=== PATIENT | male | born 1955 | race Caucasian/White ===

== ENCOUNTER 2017-01-22 16:09 | Inpatient (IN) | payer BC ==
[~2017-01-22] VITALS: Ht 188 cm; Wt 128.5 kg
[~2017-01-22 16:09] MED LIST: AMBIEN10 MG PO; AMLODIPINE BESYL5 MG PO; ASPIRIN CHEW81 MG PO; B-100 COMPLEX1 EACH PO; B-COMPLEX 100 I30 ML PO; CARVEDILOL12.5 MG PO; CYCLOBENZAPRINE10 MG PO; DIOVAN160 MG PO; HYDROCHLOROTH12.5 M1 PO; LANTUS100 UNITS/ SC; MAGNESIUM500 MG PO; NORCO 10MG-325MG1 EA PO; Z.0.AMLODIPINE BESY1 PO; Z.0.COREG25 MG PO; Z.0.DIOVAN HCT 3201 PO; Z.0.FUROSEMIDE20 MG PO; Z.0.GLIMEPIRIDE4 MG PO; Z.0.KLOR-CON 1010 ME PO
[2017-01-22] MEDS ORDERED: SODIUM CHLORIDE 0.9% 1000ML 1,000 ML IV STA (16:46)
[2017-01-22 16:57] LABS: BASOPHILS # (AUTO) 0.1 (0.0-0.1); BASOPHILS % 0.5 % (0.0-1.0); EOSINOPHILS # (AUTO) 0.4 (0.0-0.4); EOSINOPHILS % 3.8 % (0.0-6.0); HEMOGLOBIN 8.5 g/dL (14.0-18.0); LYMPHOCYTES # (AUTO) 1.7 (1.0-3.2); LYMPHOCYTES % 16.8 % (18.0-39.1); MEAN CORPUSCULAR HEMOGLOBIN 28.5 pg (28-32); MEAN CORPUSCULAR HGB CONC 30.4 g/dL (31-35); MONOCYTES # (AUTO) 0.8 (0.2-0.8); MONOCYTES % 8.3 % (4.4-11.3); NEUTROPHILS # (AUTO) 6.9 (2.1-6.9); NEUTROPHILS % 70.3 % (38.7-80.0); PLATELET COUNT 220 x10e3/uL (140-360); RED BLOOD COUNT 2.98 x10e6/uL (4.3-5.7)
[2017-01-22 17:10] LABS: ALBUMIN 2.6 g/dL (3.5-5.0); ALBUMIN/GLOBULIN RATIO 0.5 (0.8-2.0); CALCIUM 9.4 mg/dL (8.4-10.2); CREATININE, SERUM 1.89 mg/dL (0.72-1.25)
--- NOTE | 2017-01-22 17:16 | Diagnostic Imaging Report ---
PROCEDURE: A single AP view of the chest. COMPARISON: Patients [facility], , CHEST SINGLE (PORTABLE), 01/03/2017, 1:36. INDICATIONS: SOB FINDINGS: Lines/tubes: None. Lungs: Hypoinflated lungs. Bilateral interstitial opacities extending from the jimbo, greater than right. Patchy opacities in bilateral lower lobes. Pleura: There is no pleural effusion or pneumothorax. Heart and mediastinum: Prominence of the cardiac silhouette, which may be partly due to low lung volumes. Central pulmonary venous congestion. Bones: No acute bony abnormality. IMPRESSION: 1. central pulmonary venous congestion and bilateral perihilar interstitial edema likely due to volume overload. 2. Patchy opacities in bilateral lower lobes, likely reflect atelectasis due to low lung volumes. Gigi Pearl M.D. Dictated by: Gigi Pearl M.D. on 01/22/2017 at 17:25 Electronically approved by: Gigi Pearl M.D. on 01/22/2017 at 17:25
[2017-01-22] MEDS ORDERED: ZOLOFT50 MG PO (18:06)
[2017-01-22] MEDS ORDERED: FAMOTIDINE20 MG PO (18:06)
[2017-01-22] MEDS ORDERED: VALIUM2 MG PO (18:06)
[2017-01-22] MEDS ORDERED: DULCOLAX SUPP10 MG RC (18:06)
[2017-01-22] MEDS ORDERED: ASPIRIN EC81 MG PO (18:06)
[2017-01-22] MEDS ORDERED: COLACE100 MG PO (18:06)
[2017-01-22] MEDS ORDERED: NEPHRO-VITE TABL1 EA PO (18:06)
[2017-01-22] MEDS: SODIUM CHLORIDE 0.9% 1000ML 1,000 ML IV SCH ×2 (18:30→20:06)
[2017-01-22 18:52] LABS: BILIRUBIN,URINE 1+ (NEGATIVE); CLARITY,URINE CLEAR (CLEAR); COLOR,URINE YELLOW (YELLOW); KETONES,URINE NEGATIVE (NEGATIVE); LEUKOCYTE ESTERASE ,URINE 2+ (NEGATIVE); NITRITE,URINE POSITIVE (NEGATIVE); PROTEIN,URINE DIPSTICK 2+ (NEGATIVE); URINE UROBILINOGEN 1 mg/dL (0.2 - 1)
[2017-01-22 19:09] LABS: EPITHELIAL CELLS,URINE FEW /LPF; RBC,URINE 0-5 /HPF (0-5)
[2017-01-22 19:10] LABS: AMORPHOUS SEDIMENT,URINE MODERATE (FEW); BACTERIA,URINE MODERATE /HPF
[2017-01-22] MEDS ORDERED: DIAZEPAM 2 MG TAB PO PRN (20:15)
[2017-01-22] MEDS ORDERED: BISACODYL 10 MG SUPP PR PRN (20:15)
[2017-01-22 20:40] VITALS: BP 142/67
[2017-01-22] MEDS: LEVOFLOXACIN 500MG/D5W 100ML 100 ML IV SCH ×2 (20:42→23:00)
--- NOTE | 2017-01-22 21:43 | History and Physical ---
HISTORY OF PRESENT ILLNESS: A 61-year-old male who comes in with acute mental status changes and also dehydration. The patient was transferred recently from [facility] to [facility]. The patient was supposedly given medication of Valium 3 times a day and apparently the found the patient to be having mental status changes and brought to the emergency room here and was found to have dehydration. MEDICATIONS: The patient's medications include amlodipine 5 mg, aspirin 81 mg, Dulcolax 10 mg suppository, Carvedilol 12.5 mg 1 tablet twice a day, Valium 2 mg q.12 h. p.r.n., Colace 100 mg, famotidine 20 mg, folic acid tablets, hydrochlorothiazide 12.5, Glargine 75 units, Sertraline 50 mg, losartan 160. PAST MEDICAL HISTORY: Hypertension, history of diabetes mellitus, history of anxiety, history of alcohol withdrawal, history of hypertension, history of dementia, and history of diabetes mellitus and depression. PAST SURGICAL HISTORY: History of bilateral cataracts, knee surgeries, left upper arm surgery, history of testicular cancer. The patient has history of bilateral carpal tunnel surgery. FAMILY HISTORY: History of hypertension and diabetes mellitus in the family and coronary artery disease in the family too. SOCIAL HISTORY: Recently stopped alcohol completely and was transferred to [place] for rehabilitation. REVIEW OF SYSTEMS: Unable to obtain. From 's account, there is no chest pain, no shortness of breath. Positive for changes in mental status. No nausea, vomiting, diarrhea, no constipation or rectal bleeding. No hematochezia and no hematemesis either. No blurry vision or diplopia. PHYSICAL EXAMINATION GENERAL: The patient is alert and oriented x1. Arousable and does respond to his name. HEENT: Normocephalic, atraumatic. Oxygen 2 liters. CVS: S1 and S2, distant. Regular rate and rhythm. LUNGS: Decreased air entry at lung bases. Positive for some crackles in the lungs. ABDOMEN: Nontender, nondistended. EXTREMITIES: No clubbing. Positive for onychomycosis., trophic changes and positive for bilateral lower extremity edema. Chest x-ray initially shows central pulmonary venous congestion, bilateral perihilar interstitial edema, patchy opacities in the lower lungs. LABORATORY DATA: White count is 9.83, RBCs 2.9, hemoglobin 8.5, hematocrit 28.0, platelet count 220,000. Chemistry shows BUN of 81, creatinine 1.89. Magnesium 2.5, total bilirubin 1.4, AST 42, ALT 36, alkaline phosphatase 271. Urine showed 2+ leukocyte esterase and positive for nitrates. PLAN: The patient has been started on IV fluids. With his urine, will go ahead and culture the urine and start him on some IV antibiotic, and will supplement with Levaquin right now 500 mg IV daily. Will reinstate home medications tomorrow. Continue checking his vitals and also his lab values to see his creatinine. Also, need to continue monitoring the patient's volume status and will do a chest x-ray in the morning. Further recommendations depending on clinical course. Job#: [id number] ANDREW
[2017-01-22] MEDS ORDERED: FUROSEMIDE INJ 10 MG/ML 4 ML VIAL IV ONE (22:45)
[2017-01-22] MEDS: ALBUTEROL/IPRATROPIUM 3 ML NEB NEB SCH (23:00)
[2017-01-22] MEDS: CARVEDILOL 10 MG CAPCR PO SCH (23:00)
[2017-01-22] MEDS: INSULIN DETEMIR 100 UNIT/ML PEN SQ SCH (23:00)
[2017-01-22 23:38] VITALS: BP 142/67
[2017-01-22 23:46] VITALS: BP 142/67
[2017-01-23] VITALS (7 sets, daily range): BP systolic 111–140; BP diastolic 64–91
[2017-01-23] MEDS: ALBUTEROL/IPRATROPIUM 3 ML NEB NEB SCH ×2 (03:00→07:20)
--- NOTE | 2017-01-23 06:30 | Diagnostic Imaging Report ---
CHEST SINGLE (PORTABLE), 01/23/2017 12:17 AM Technique: CHEST SINGLE (PORTABLE) Comparison: 01/03/2017 Clinical history: Dehydration Findings: See Impression Impression: 1. Prominent cardiomediastinal silhouette, poorly assessed due to portable technique and rotation. 2. Bibasilar opacities which could be due to atelectasis, aspiration or infection. Recommend upright PA and lateral when feasible. 3. No significant effusion. Signed by: Dr Cynthia Richmond MD on 01/23/2017 6:26 AM
[2017-01-23 06:43] LABS: BASOPHILS % 0.4 % (0.0-1.0); EOSINOPHILS # (AUTO) 0.3 (0.0-0.4); EOSINOPHILS % 3.8 % (0.0-6.0); HEMATOCRIT 29.4 % (38.2-49.6); HEMOGLOBIN 8.5 g/dL (14.0-18.0); LYMPHOCYTES # (AUTO) 1.5 (1.0-3.2); LYMPHOCYTES % 18.6 % (18.0-39.1); MEAN CORPUSCULAR HEMOGLOBIN 27.8 pg (28-32); MEAN CORPUSCULAR HGB CONC 28.9 g/dL (31-35); MEAN CORPUSCULAR VOLUME 96.1 fL (81-99); MONOCYTES # (AUTO) 0.6 (0.2-0.8); MONOCYTES % 7.9 % (4.4-11.3); NEUTROPHILS # (AUTO) 5.6 (2.1-6.9); NEUTROPHILS % 68.8 % (38.7-80.0); PLATELET COUNT 223 x10e3/uL (140-360); RED BLOOD COUNT 3.06 x10e6/uL (4.3-5.7); RED CELL DISTRIBUTION WIDTH 15.9 % (11.7-14.4)
[2017-01-23 07:07] LABS: CALCIUM 9.3 mg/dL (8.4-10.2); CREATININE, SERUM 1.71 mg/dL (0.72-1.25)
[2017-01-23 08:20] LABS: BAND NEUTROPHILS % (MANUAL) 1 %; EOSINOPHILS % (MANUAL) 2 % (0-7); LYMPHOCYTES % (MANUAL) 10 % (19-48); MONOCYTES % (MANUAL) 1 % (3.4-9.0); NEUTROPHILS % (MANUAL) 86 % (40-74); PLATELET ESTIMATE ADEQUATE; PLATELET MORPHOLOGY COMMENT NORMAL; RBC MORPHOLOGY COMMENT NORMAL
[2017-01-23] MEDS ORDERED: DIGOXIN INJ 0.25 MG/ML 2 ML AMP IV ONE (08:45)
[2017-01-23] MEDS: HYDROCHLOROTHIAZIDE 25 MG TAB PO SCH (09:00)
[2017-01-23] MEDS: CARVEDILOL 10 MG CAPCR PO SCH (09:00)
[2017-01-23] MEDS: AMLODIPINE BESYLATE 5 MG TAB PO SCH (09:00)
[2017-01-23] MEDS: SERTRALINE HCL 50 MG TAB PO SCH (09:00)
[2017-01-23] MEDS: FAMOTIDINE 20 MG TAB PO SCH ×2 (09:00→17:00)
[2017-01-23] MEDS: ASPIRIN 81 MG ENTERIC COATED PO SCH (09:00)
[2017-01-23] MEDS: DOCUSATE SODIUM 100 MG CAP PO SCH ×2 (09:00→17:00)
[2017-01-23] MEDS: VALSARTAN 160 MG TAB PO SCH (09:00)
[2017-01-23] MEDS ORDERED: DIGOXIN IV ONE (09:30)
[2017-01-23 09:38] LABS: FREE THYROXINE INDEX 1.8036 (1.4-3.8); T3 UPTAKE 33.84 % (22.50-37.00); THYROID STIMULATING HORMONE 0.689 uIU/mL (0.350-4.940); TROPONIN I 0.01 ng/mL (0-0.300)
[2017-01-23] MEDS: LEVALBUTEROL HCL SOLN NEBU 0.63 MG/3 ML NEB INH PRN (11:05)
[2017-01-23] MEDS: SODIUM CHLORIDE 0.9% 1000ML 1,000 ML IV SCH (13:56)
[2017-01-23] MEDS: LABETALOL HCL IV 5 MG/ML 20ML MDV IV SCH ×2 (14:30→22:00)
[2017-01-24] VITALS (27 sets, daily range): BP systolic 68–137; BP diastolic 44–81
[2017-01-24] MEDS: LABETALOL HCL IV 5 MG/ML 20ML MDV IV SCH ×4 (06:00→23:24)
--- NOTE | 2017-01-24 06:11 | Diagnostic Imaging Report ---
CHEST SINGLE (PORTABLE), 01/24/2017 6:00 AM Technique: CHEST SINGLE (PORTABLE) Comparison: 01/23/2017 Clinical history: Fluid overload Findings: See Impression Impression: Markedly limited by portable technique and soft tissue attenuation. Lung apices excluded from view. 1. Enlarged cardiomediastinal silhouette. 2. Low lung volumes with vascular crowding/atelectasis and/or edema. 3. Possible layering left effusion versus artifact of technique. Signed by: Dr Cynthia Richmond MD on 01/24/2017 6:07 AM
[2017-01-24] MEDS ORDERED: ACETAMINOPHEN 1000 MG/100 ML IV STA (07:45)
[2017-01-24] MEDS ORDERED: DILTIAZEM HCL VIAL 5 ML ONE (07:52)
[2017-01-24] MEDS: SODIUM CHLORIDE 0.9% 1000ML 1,000 ML IV SCH (08:20)
[2017-01-24 08:23] LABS: ABG HCO3 23 mmol/L (23-28); ABG PCO2 34 mmHg (41-51); ABG PH 7.43 (7.31-7.41); ABG PO2 73 mmHg (80-105)
[2017-01-24] MEDS: CARVEDILOL 10 MG CAPCR PO SCH (09:00)
[2017-01-24] MEDS ORDERED: VANCOMYCIN 1GM/NS 250 ML 250 ML IV SCH (09:00)
[2017-01-24] MEDS: VALSARTAN 160 MG TAB PO SCH (09:00)
[2017-01-24] MEDS: FAMOTIDINE 20 MG TAB PO SCH (09:00)
[2017-01-24] MEDS: HYDROCHLOROTHIAZIDE 25 MG TAB PO SCH (09:00)
[2017-01-24] MEDS: DOCUSATE SODIUM 100 MG CAP PO SCH ×2 (09:00→16:04)
[2017-01-24] MEDS ORDERED: DIGOXIN INJ 0.25 MG/ML 2 ML AMP IV ONE ×2 (09:00→12:30)
[2017-01-24] MEDS: SERTRALINE HCL 50 MG TAB PO SCH (09:00)
[2017-01-24] MEDS: ASPIRIN 81 MG ENTERIC COATED PO SCH (09:00)
[2017-01-24] MEDS: AMLODIPINE BESYLATE 5 MG TAB PO SCH (09:00)
--- NOTE | 2017-01-24 09:16 | Diagnostic Imaging Report ---
EXAMINATION: Chest, CHEST SINGLE (PORTABLE) INDICATION: Chest pain COMPARISON: Portable chest 0524 hours on 01/24/2017. Portable chest 01/23/2017. FINDINGS: LINES: None. Heart: Normal cardiac silhouette. Vascular: The pulmonary vasculature is within normal limits. Atherosclerotic calcifications of the aortic arch. Mediastinum: No mediastinal, hilar, or axillary mass or lymphadenopathy. Lungs: No parenchymal mass. Bilateral multifocal airspace opacities. Pleura: Small left pleural effusion. No pneumothorax. Bones: No acute osseous abnormality. Degenerative changes of the thoracic spine. Soft tissues: Normal. Impression: Bilateral multifocal airspace opacities may represent edema or pneumonia. Small left pleural effusion. Signed by: Dr. Gopal Casiano M.D. on 01/24/2017 9:13 AM
[2017-01-24 09:26] LABS: HEMOGLOBIN 9.2 g/dL (14.0-18.0); MEAN CORPUSCULAR HEMOGLOBIN 28.5 pg (28-32); MEAN CORPUSCULAR HGB CONC 29.7 g/dL (31-35); PLATELET COUNT 184 x10e3/uL (140-360); RED BLOOD COUNT 3.23 x10e6/uL (4.3-5.7)
[2017-01-24 09:53] LABS: ANION GAP 16.6 mmol/L (8-16); CALCIUM 9.1 mg/dL (8.4-10.2); CREATININE, SERUM 2.03 mg/dL (0.72-1.25); POTASSIUM 4.6 mmol/L (3.5-5.1)
[2017-01-24] MEDS: INSULIN LISPRO 100 UNIT/1 ML 3ML VIAL SQ SCH ×3 (11:30→17:46)
[2017-01-24] MEDS ORDERED: DEXTROSE 50% SYRINGE 50 ML IV PRN ×2 (11:30→22:15)
[2017-01-24] MEDS ORDERED: DILTIAZEM HCL 100 ML IV ONE (11:36)
[2017-01-24] MEDS ORDERED: DEXTROSE 5% 1000ML 1,000 ML IV ONE (12:00)
[2017-01-24] MEDS ORDERED: DILTIAZEM HCL 100 ML IV PRN (12:00)
[2017-01-24 12:09] LABS: FREE THYROXINE INDEX 1.7807 (1.4-3.8); T3 UPTAKE 34.78 % (22.50-37.00); THYROID STIMULATING HORMONE 0.397 uIU/mL (0.350-4.940)
[2017-01-24] MEDS ORDERED: AMIODARONE HCL 150 MG in DEXTROSE 5% 100ML 100 ML IV ONE (14:00)
[2017-01-24] MEDS ORDERED: CLINDAMYCIN PHOS 900MG/ D5W 50 50 ML IV SCH (14:00)
[2017-01-24] MEDS ORDERED: AMIODARONE HCL 900 MG in DEXTROSE 5 % 500ML BOTTLE 482 ML IV SCH (14:00)
[2017-01-24] MEDS ORDERED: MEROPENEM 500MG 500 MG in SODIUM CHLORIDE 0.9% 50ML 50 ML IV SCH (14:00)
--- NOTE | 2017-01-24 14:34 | Consultation ---
DATE OF CONSULTATION: January 24, 2017 PULMONARY CONSULTATION This is a patient of Dr. Avila, Dr. Quincy Bocanegra and Dr. Orr. This is an unfortunate, 61-year-old gentleman with a history of falling at home for which he was admitted to the hospital and then to rehabilitation in [facility] where, according to , he deteriorated further. He was progressively weak there with difficulty walking. History of diabetes and hypertension. History of alcoholism in the past. ALLERGIES: PENICILLIN. He has a history of testicular cancer treated with surgery, radiation and chemotherapy. He has had knee surgery, shoulder surgery and cataract surgery. He worked for [employer]. Family history is positive for cancer of the lung. PHYSICAL EXAMINATION GENERAL: He is a well-developed white male, confused. He awakens. VITALS: Temperature 102.1, pulse 144 and irregular, respirations 30, blood pressure 127/77. LUNGS: Bilateral rhonchi. HEART: Irregularly irregular rhythm. ABDOMEN: Nontender. EXTREMITIES: Not edematous. IMPRESSION 1. Congestive heart failure related to tachycardia arrhythmia. 2. Urinary tract infection with extended spectrum beta lactamase of the urine. 3. Presumed aspiration pneumonia. 4. Dehydration. 5. Renal failure. PLAN: IV fluids. Therapy of the atrial fibrillation with rapid response. Cardiology has been consulted. ICU care. BiPAP. The patient does have a history of sleep apnea but has refused BiPAP in the past. Broad-spectrum antibiotics to treat aspiration and staph cover. Liberalize fluids. Intubation if the patient declines. NG tube placement. The patient is unable to swallow at this time. Will request NG tube placement. Job#: [id number]
[2017-01-24 14:53] LABS: CREATINE KINASE MB 0.3 ng/mL (0.00-5.00); TROPONIN I 0.079 ng/mL (0-0.300)
--- NOTE | 2017-01-24 15:08 | Consultation ---
DATE OF CONSULTATION: January 24, 2017 CARDIOLOGY CONSULTATION REASON FOR CONSULTATION: Atrial fibrillation. HISTORY OF PRESENT ILLNESS: Mr. Naidu is a 61-year-old gentleman with a past medical history of hypertension, type-2 diabetes, hypercholesterolemia, alcohol dependence with very significant alcohol drinking history, who is drinking 32 shots of liquor a day for over 10 years according to family. The patient was most recently in a rehab facility trying to learn how to walk. However, he did not make much progress. At the rehab facility, he was receiving [id number] Valium q.8 h. Finally, he was taken out of rehab 3 days ago by his family and was brought here for further care and management. In the hospital here, he was found to have acute onset of mental status change with confusion, found to have dehydration, and was noted to be actively delirious. He also apparently aspirated here and is currently with hypoxic respiratory failure in the ICU and just clinically not doing well. He was brought to the ICU after having a rhythm change on his EKG. On EKG, he was noted to have atrial flutter with rapid ventricular response. The patient's family maintains that he has never had this electrical rhythm. Despite using diltiazem therapy, rate control was not adequately achieved. We are unable to currently obtain any subjective history as he is not conversational, staring blankly and is clearly not knowing where he is at. PAST MEDICAL HISTORY 1. Hypertension, essential. 2. Heavy alcohol dependence. 3. Remote history of testicular cancer. 4. Underlying alcohol-related brain injury and medical issues. 5. Chronic kidney disease, stage 3. 6. History of knee replacement surgery. FAMILY HISTORY: Unable to be obtained secondary to mental status. SOCIAL HISTORY: Heavy alcohol dependence, 32 drinks of hard liquor per day for over 10 years with history of DTs. No known history of IV drug use or smoking. He is currently . ALLERGIES: PENICILLIN. HOME MEDICATIONS: Include: 1. Norvasc 5 mg daily. 2. Aspirin 81 mg daily. 3. Coreg 12.5 mg b.i.d. 4. Pepcid 20 mg daily. 5. Hydrochlorothiazide 12.5 mg daily. 6. Lantus 75 units subcutaneous nightly. 7. Valsartan 320 mg daily. 8. Zoloft 50 mg daily. 9. Multivitamin tablet daily. REVIEW OF SYSTEMS: Unable to obtain secondary to medical condition. PHYSICAL EXAMINATION VITALS: Height 74 inches, weight 285 pounds, BMI 36.6. T-max 102. Current heart rate is 136. Blood pressure 112/64. The O2 sat is 93% on BiPAP therapy. GENERAL: This is a delirious gentleman who is currently staring, confused. He appears to be in moderate distress. HEENT: Pupils are equal, round and reactive to light. The extraocular movements are intact. Oropharynx is clear with BiPAP mask. NECK: No elevation of jugular venous pulsation. No carotid bruit. CARDIOVASCULAR: Tachycardic, irregular rate and rhythm. Normal S1 and S2. A 3/6 systolic murmur at the left lower sternal border. LUNGS: Coarse breath sounds and crackles, adventitious sounds throughout the lung campa. ABDOMEN: Soft. Nontender and nondistended. Normoactive bowel sounds. BACK: No costovertebral angle tenderness. EXTREMITIES: Warm with 2+ bounding radial pulses, 1+ pedal pulses, and trace edema. NEUROLOGIC: Confused. Unable to really adequately assess. LABS: White count 11.4, hemoglobin 9.2, hematocrit 31.0, platelets 184. Sodium 158, potassium 4.6, chloride 124, bicarb 22, BUN 71, creatinine 2.03, glucose 269. BNP is 1807. TSH 0.397. ABG shows pH 7.43, pCO2 34, pO2 73. UA shows 6-10 white cells. Chest x-ray reveals bilateral multifocal air space opacities and small left pleural effusion. EKG reveals atrial fibrillation with rapid ventricular response, LVH-type changes, and nonspecific ST-T-wave changes. DIAGNOSES 1. Atrial fibrillation with rapid ventricular response, likely secondary to underlying delirium and aspiration pneumonia. Differential includes alcohol withdrawal type state. 2. Hypoxic respiratory failure. Currently he is temporized on BiPAP therapy. 3. History of hypertension. 4. Heavy alcohol dependence history. 5. Underlying acute kidney injury. 6. Delirium. PLAN/RECOMMENDATIONS 1. From a cardiovascular standpoint, reviewed echocardiogram done 2 days ago showing EF 60% to 65% with hypertensive heart changes and no significant valvular abnormality. Suspect underlying rhythm issues or secondary to his underlying medical stressors. 2. Agree with broad-spectrum antibiotics to cover for underlying aspiration-type pneumonia coverage. 3. Pulmonary has been consulted for breathing management. Defer need for intubation per them but currently is being temporized on BiPAP therapy. 4. Lower extremity venous duplex was done showing no DVT, which excludes DVT and likely PE as an underlying cause of this presentation. 5. Monitor amiodarone response. 6. Will continue to follow this critically ill patient with you. Thank you for this referral. Job#: [id number]
--- NOTE | 2017-01-24 15:11 | Diagnostic Imaging Report ---
ADDENDUM #1 Hepatofugal flow is noted in the main portal vein. Signed by: Dr. Gopal Casiano M.D. on 01/24/2017 3:35 PM ORIGINAL REPORT EXAM: Complete Abdominal Ultrasound INDICATION: Fever. COMPARISON: None. TECHNIQUE: Transverse and longitudinal images of the upper abdomen were obtained. FINDINGS: Liver: Size: 20.0 cm in the right midclavicular line Appearance: Increased echogenicity, nodular contour Mass: No focal masses Main Portal Vein: 0.7 cm, normal size with hepatopetal flow. Spleen: Size: 17.8 cm in length, normal Echogenicity: Normal Mass: No focal masses Gallbladder: Stones/Sludge: None. Wall: 4.0 mm. Appearance: No pericholecystic fluid. No gallbladder hydrops. Sonographic Inman's Sign: Negative Bile Ducts: Intrahepatic Ducts: No dilatation Common bile duct measures 4.0 mm. no dilatation Pancreas: The pancreas was insufficiently visualized to comment secondary to overlying bowel gas. Right Kidney: Size: 11.8 cm Echogenicity: Normal Parenchymal thickness: Normal Collecting System: No hydronephrosis Stone: None Cyst/Mass: None Left Kidney: Size: 13.0 cm Echogenicity: Normal Parenchymal thickness: Normal Collecting System: No hydronephrosis Stone: None Cyst/Mass: None Vessels: Aorta: Visualized portions are normal Inferior Vena Cava: Visualized portions are normal Free Fluid: No ascites or pleural effusion IMPRESSION: Hepatomegaly. Hepatic steatosis. Nodular contour of the liver may represent cirrhotic morphology. Splenomegaly. Signed by: Dr. Gopal Casiano M.D. on 01/24/2017 3:08 PM
[2017-01-24] MEDS: ENOXAPARIN SOD INJ 40 MG/0.4 ML SYR SC SCH (16:14)
[2017-01-24] MEDS: LORAZEPAM INJ 2 MG/ML VIAL IV PRN ×2 (16:15→20:25)
[2017-01-24 16:19] LABS: ABG HCO3 23 mmol/L (23-28); ABG PCO2 44 mmHg (41-51); ABG PH 7.33 (7.31-7.41); ABG PO2 75 mmHg (80-105)
[2017-01-24] MEDS: IPRATROPIUM BROMIDE 0.02% 2.5 ML NEB NEB SCH (19:00)
[2017-01-24] MEDS: LEVALBUTEROL HCL SOLN NEBU 0.63 MG/3 ML NEB INH PRN (19:00)
--- NOTE | 2017-01-24 19:16 | Diagnostic Imaging Report ---
EXAMINATION: Chest, CHEST XRAY LINE PLACEMENT INDICATION: Chest pain COMPARISON: Portable chest 01/24/2017 FINDINGS: LINES: Left peripherally inserted central venous catheter with tip projecting over the expected region of the left brachiocephalic vein. Heart: Normal cardiac silhouette. Vascular: The pulmonary vasculature is within normal limits. Atherosclerotic calcifications of the aortic arch. Mediastinum: No mediastinal, hilar, or axillary mass or lymphadenopathy. Lungs: No parenchymal mass. Bilateral multifocal airspace opacities. Pleura: Small left pleural effusion. No pneumothorax. Bones: No acute osseous abnormality. Degenerative changes of the thoracic spine. Soft tissues: Normal. Impression: Bilateral multifocal airspace opacities may represent edema or pneumonia. Small left pleural effusion. Signed by: Dr. Gopal Casiano M.D. on 01/24/2017 7:12 PM
[2017-01-24] MEDS ORDERED: DIGOXIN INJ 0.25 MG/ML 2 ML AMP ONE (19:51)
[2017-01-24] MEDS ORDERED: VASOPRESSIN 100 UNIT in DEXTROSE 5% 100ML 100 ML IV PRN (20:00)
[2017-01-24] MEDS ORDERED: DIGOXIN INJ 0.25 MG/ML 2 ML AMP IV PRN (20:00)
[2017-01-24] MEDS: INSULIN DETEMIR 100 UNIT/ML PEN SQ SCH (20:11)
[2017-01-24] MEDS ORDERED: INSULIN REGULAR, HUMAN 3ML VL 300 UNIT in SODIUM CHLORIDE 0.45% 100 ML 300 ML IV SCH ×2 (22:08)
[2017-01-24] MEDS ORDERED: DEXTROSE 5% 1000ML 1,000 ML IV SCH (22:15)
[2017-01-24 22:55] LABS: CREATINE KINASE MB 0.2 ng/mL (0.00-5.00); TROPONIN I 0.077 ng/mL (0-0.300)
--- NOTE | 2017-01-24 23:09 | Diagnostic Imaging Report ---
CHEST XRAY LINE PLACEMENT, 01/24/2017 8:49 PM Technique: CHEST XRAY LINE PLACEMENT Comparison: 01/24/2017 Clinical history: PICC placement, adjustment Findings: See Impression Impression: Markedly limited by portable technique, soft tissue attenuation and motion artifact. 1. Lines/Tubes: Left PICC advance seen at least to the cavoatrial junction, but tip not distinctly visualized despite multiple repeat attempts. Recommend upright PA and lateral when feasible to assess tip location. 2. Stable enlarged cardiomediastinal silhouette. 3. Low lung volumes with bibasilar opacity, presumed atelectasis. Signed by: Dr Cynthia Richmond MD on 01/24/2017 11:05 PM
[2017-01-25] VITALS (182 sets, daily range): BP systolic 49–188; BP diastolic 31–80
[2017-01-25] MEDS: LORAZEPAM INJ 2 MG/ML VIAL IV PRN (03:31)
[2017-01-25] MEDS: LEVALBUTEROL HCL SOLN NEBU 0.63 MG/3 ML NEB INH PRN ×6 (03:40→19:52)
--- NOTE | 2017-01-25 05:52 | Diagnostic Imaging Report ---
CHEST SINGLE (PORTABLE), 01/25/2017 7:00 AM Technique: CHEST SINGLE (PORTABLE) Comparison: 01/24/2017 Clinical history: Shortness of breath Findings: See Impression Impression: 1. Lines/Tubes: Left PICC with tip now visualized 1.5 cm over the high right atrium on this low volume study. 2. Stable mildly enlarged cardiac silhouette. 3. Persistent low lung volumes with bibasilar opacities, presumed atelectasis. Signed by: Dr Cynthia Richmond MD on 01/25/2017 5:48 AM
[2017-01-25 06:07] LABS: BASOPHILS % 0.3 % (0.0-1.0); EOSINOPHILS # (AUTO) 0.3 (0.0-0.4); EOSINOPHILS % 2.4 % (0.0-6.0); HEMATOCRIT 28.7 % (38.2-49.6); HEMOGLOBIN 8.2 g/dL (14.0-18.0); LYMPHOCYTES # (AUTO) 3.1 (1.0-3.2); LYMPHOCYTES % 23.1 % (18.0-39.1); MEAN CORPUSCULAR HEMOGLOBIN 28.3 pg (28-32); MEAN CORPUSCULAR HGB CONC 28.6 g/dL (31-35); MONOCYTES % 7.6 % (4.4-11.3); NEUTROPHILS # (AUTO) 8.9 (2.1-6.9); PLATELET COUNT 177 x10e3/uL (140-360); RED CELL DISTRIBUTION WIDTH 15.9 % (11.7-14.4)
[2017-01-25 06:27] LABS: INR 1.76; PROTHROMBIN TIME 21.5 seconds (11.9-14.5)
[2017-01-25 06:36] LABS: ALBUMIN 2.4 g/dL (3.5-5.0); ALBUMIN/GLOBULIN RATIO 0.4 (0.8-2.0); ANION GAP 14.9 mmol/L (8-16); CALCIUM 8.8 mg/dL (8.4-10.2); CREATININE, SERUM 3.18 mg/dL (0.72-1.25); POTASSIUM 4.9 mmol/L (3.5-5.1)
[2017-01-25] MEDS: LABETALOL HCL IV 5 MG/ML 20ML MDV IV SCH ×3 (06:36→17:21)
[2017-01-25 06:52] LABS: CREATINE KINASE MB 0.2 ng/mL (0.00-5.00); TROPONIN I 0.168 ng/mL (0-0.300)
[2017-01-25 07:44] LABS: ANISOCYTOSIS SLIGHT; HYPOCHROMASIA SLIGHT; PLATELET ESTIMATE ADEQUATE; PLATELET MORPHOLOGY COMMENT FEW GIANT; RBC MORPHOLOGY COMMENT NORMAL
[2017-01-25] MEDS ORDERED: NOREPINEPHRINE BITARTRATE/ NS 250 ML ONE (08:04)
[2017-01-25] MEDS ORDERED: SODIUM CHLORIDE 0.9% 250ML 250 ML IV SCH (08:15)
[2017-01-25] MEDS ORDERED: NOREPINEPHRINE BITARTRATE/ NS 250 ML IV PRN (08:15)
--- NOTE | 2017-01-25 08:20 | Diagnostic Imaging Report ---
PROCEDURE: CHEST SINGLE (PORTABLE) COMPARISON: Patients [facility], DX, CHEST SINGLE (PORTABLE), 01/25/2017, 5:15. INDICATIONS: POST INTUBATION FINDINGS: LUNGS: No consolidations or edema. Bibasilar atelectasis. There is a left-sided PICC line. PLEURA: No effusions or pneumothorax. HEART \T\ MEDIASTINUM: The heart is within normal size-limits. Endotracheal tube is been placed with the tip at the level of the clavicles. BONES \T\ SOFT TISSUES: No acute findings. CONCLUSION: 1. Acceptable position of a recently placed endotracheal tube 2. Bibasilar atelectasis Chris Thomas D.O. Dictated by: Chris Thomas D.O. on 01/25/2017 at 8:28 Electronically approved by: Chris Thomas D.O. on 01/25/2017 at 8:28
[2017-01-25] MEDS ORDERED: MIDAZOLAM HCL 2 MG/2 ML VIAL IV PRN (08:30)
[2017-01-25] MEDS: IPRATROPIUM BROMIDE 0.02% 2.5 ML NEB NEB SCH ×4 (08:30→19:52)
[2017-01-25 08:41] LABS: ABG HCO3 22 mmol/L (23-28); ABG PCO2 40 mmHg (41-51); ABG PH 7.34 (7.31-7.41); ABG PO2 130 mmHg (80-105)
[2017-01-25] MEDS: SERTRALINE HCL 50 MG TAB PO SCH (09:00)
[2017-01-25] MEDS: DOCUSATE SODIUM 100 MG CAP PO SCH ×2 (09:00→17:00)
[2017-01-25] MEDS ORDERED: THIAMINE HCL INJ 100 MG in SODIUM CHLORIDE 0.9% 50ML 50 ML IV SCH (09:00)
[2017-01-25] MEDS: ASPIRIN 81 MG ENTERIC COATED PO SCH (09:00)
[2017-01-25] MEDS ORDERED: VALSARTAN 160 MG TAB PO SCH (09:00)
[2017-01-25] MEDS ORDERED: SODIUM CHLORIDE 0.9% 250ML 250 ML IV ONE (09:15)
[2017-01-25] MEDS ORDERED: DEXTROSE 5% 1000ML 1,000 ML IV SCH (09:30)
[2017-01-25 09:58] LABS: BLOOD UREA NITROGEN 89 mg/dL (7-26); GLUCOSE 192 mg/dL (74-118); OSMOLALITY,SERUM 347 mOsm/kg (278-305); SODIUM 159 mmol/L (136-145)
--- NOTE | 2017-01-25 10:54 | Diagnostic Imaging Report ---
PROCEDURE:X-RAY ABDOMEN - KUB COMPARISON:None. INDICATIONS:NGT PLACEMENT FINDINGS: A Dobbhoff feeding tube has been placed with its tip overlying the gastric air bubble. There are no dilated loops of bowel to suggest obstruction. There are no masses or abnormal calcifications. There is no evidence of free air. No acute osseous abnormalities are present. CONCLUSION: No acute abdominal abnormality. Chris Thomas D.O. Dictated by: Chris Thomas D.O. on 01/25/2017 at 11:02 Electronically approved by: Chris Thomas D.O. on 01/25/2017 at 11:02
[2017-01-25] MEDS: THIAMINE HCL INJ 100 MG/ML 2ML VIAL IV SCH (11:00)
[2017-01-25] MEDS: INSULIN REGULAR, HUMAN 3ML VL 100 UNIT in SODIUM CHLORIDE 0.45% 100 ML 100 ML IV SCH ×2 (11:12)
[2017-01-25] MEDS ORDERED: THIAMINE HCL INJ 100 MG/ML 2ML VIAL ONE (11:14)
[2017-01-25] MEDS ORDERED: SODIUM CHLORIDE FLUSH 10 ML SYR ONE (12:44)
[2017-01-25] MEDS ORDERED: CALCIUM CHLORIDE 10% 1.36 MEQ/ML 10ML SYR IV ONE (12:44)
[2017-01-25] MEDS ORDERED: EPINEPHRINE HCL SYRINGE ONE (12:44)
[2017-01-25] MEDS ORDERED: SODIUM BICARBONATE 8.4% INJ 50 ML SYR ONE (12:44)
[2017-01-25] MEDS ORDERED: ATROPINE SULFATE 0.1 MG/ML 10ML SYR ONE (12:44)
--- NOTE | 2017-01-25 13:33 | Consultation ---
HISTORY OF PRESENT ILLNESS: History predominantly from electronic records. This is a 61-year-old gentleman with history of alcoholism, hypertension, multiple comorbidities, who apparently had a cardiac arrest this morning mostly hypoxic and currently on a ventilator, hypotensive, sedated, and on Levophed at 20 mcg. He has a PICC line in left arm, currently non-oliguric, has a Hammond catheter. Renal consult for management of acute kidney injury. He was recently here on January 14, 2017 with acute alcohol withdrawal. He drinks about 32 shots of hard alcohol every day. Apparently, he was seen by psych earlier during his admission. Prior to that had been admitted once with diverticulitis and presented once with hyperkalemia with a baseline serum creatinine of 1.36 back in 2013. Most recent labs show sodium 159, potassium 4.9, bicarbonate 24, creatinine 3.18, hemoglobin 8.2, platelets 177, INR 1.67, total bilirubin 1.2, AST 44, ALT 36, alkaline phosphatase 235. ALLERGIES: TO PENICILLIN. CURRENT MEDICATIONS: Patient is on Levophed. Also was on amiodarone, which has been held. Receiving D5 water at 75 mL an hour. I had given him a liter of D5 water earlier. He was on multivitamin thiamine, which I am going to add to the current IV fluid. For details, please see MAR. Chest x-ray, please see official report. Had an abdominal ultrasound done on the , shows spleen about 17.8 cm, liver 20 cm, right kidney 11.8, left kidney 13 cm, no evidence of hepatic steatosis, nodular contour suggestive of possible cirrhosis. PHYSICAL EXAMINATION GENERAL: Patient intubated, sedated, unresponsive. LUNGS: Poor gas exchange, although he is on a ventilator. Somewhat decreased air entry, right more than left. Supine exam done anteriorly, no evidence of any rales. HEART: Soft heart sounds S1, S2. I could not appreciate any murmurs or gallop. ABDOMEN: Otherwise, soft, distended, nontender. EXTREMITIES: Lower extremity examination shows chronic skin changes with no edema. IMPRESSION AND PLAN 1. Ltnin-ix-emlment kidney failure, likely chronic kidney disease stage 3 with acute kidney injury, likely acute tubular necrosis, now with cardiorespiratory arrest. 2. History is significant alcoholism, multiple comorbidities. Kidney ultrasound noted relatively non-oliguric. Plan on hydrating, adding multivitamin, thiamine, folic acid, and IV fluid. Will hydrate enterally and parenterally. Monitor patient's volume and fluid status with you. Please see orders. Job#: [id number] VAS
[2017-01-25] MEDS: ACETAMINOPHEN 325 MG/10 ML UDC NG PRN (13:40)
[2017-01-25] MEDS ORDERED: ACETAMINOPHEN 325 MG/10 ML UDC ONE (13:52)
[2017-01-25] MEDS: THIAMINE HCL IV SCH ×2 (14:00→23:00)
[2017-01-25] MEDS: PANTOPRAZOLE 40 MG 10ML VIAL IV SCH (14:00)
[2017-01-25] MEDS: MULTIVITAMINS IV SCH ×2 (14:00→23:00)
[2017-01-25] MEDS: [UNRECOGNIZED DRUG - OTHER] IV SCH ×2 (14:00→23:00)
[2017-01-25] MEDS: FOLIC ACID IV SCH ×2 (14:00→23:00)
[2017-01-25] MEDS: MEROPENEM 500 MG VIAL IV SCH (15:00)
[2017-01-25] MEDS: WATER STERILE 10 ML VIAL IV SCH (15:00)
[2017-01-25] MEDS: ENOXAPARIN SOD INJ 40 MG/0.4 ML SYR SC SCH (17:00)
[2017-01-25] MEDS: INSULIN DETEMIR 100 UNIT/ML PEN SQ SCH (23:00)
[2017-01-26] VITALS (139 sets, daily range): BP systolic 77–141; BP diastolic 44–81
[2017-01-26] MEDS: WATER STERILE 10 ML VIAL IV SCH ×4 (00:12→22:00)
[2017-01-26] MEDS: MEROPENEM 500 MG VIAL IV SCH ×4 (00:12→22:00)
[2017-01-26] MEDS: IPRATROPIUM BROMIDE 0.02% 2.5 ML NEB NEB SCH ×4 (01:02→15:20)
[2017-01-26 05:24] LABS: BASOPHILS % 0.3 % (0.0-1.0); EOSINOPHILS # (AUTO) 0.3 (0.0-0.4); EOSINOPHILS % 3.2 % (0.0-6.0); HEMATOCRIT 23.1 % (38.2-49.6); LYMPHOCYTES # (AUTO) 2.2 (1.0-3.2); LYMPHOCYTES % 21.1 % (18.0-39.1); MEAN CORPUSCULAR HEMOGLOBIN 28.4 pg (28-32); MEAN CORPUSCULAR HGB CONC 30.7 g/dL (31-35); MEAN CORPUSCULAR VOLUME 92.4 fL (81-99); MONOCYTES # (AUTO) 0.6 (0.2-0.8); MONOCYTES % 5.6 % (4.4-11.3); NEUTROPHILS # (AUTO) 7.2 (2.1-6.9); NEUTROPHILS % 68.8 % (38.7-80.0); PLATELET COUNT 148 x10e3/uL (140-360); RED CELL DISTRIBUTION WIDTH 15.6 % (11.7-14.4)
[2017-01-26 05:29] LABS: HEMOGLOBIN 7.1 g/dL (14.0-18.0)
[2017-01-26 05:45] LABS: ALBUMIN 2.1 g/dL (3.5-5.0); ALBUMIN/GLOBULIN RATIO 0.4 (0.8-2.0); CALCIUM 8.2 mg/dL (8.4-10.2); CREATININE, SERUM 3.2 mg/dL (0.72-1.25)
[2017-01-26] MEDS: LABETALOL HCL IV 5 MG/ML 20ML MDV IV SCH ×4 (06:00→18:00)
--- NOTE | 2017-01-26 06:57 | Diagnostic Imaging Report ---
EXAM: CHEST SINGLE (PORTABLE), AP 1 view DATE: 01/26/2017 7:00 AM Time stamp on exam: 0540 hours INDICATION: Intubated COMPARISON: AP view of the chest January 25, 2017 FINDINGS: LINES/TUBES: Endotracheal tube stable position. Dobbhoff tube tip in expected location of the body of the stomach. LUNGS: Bibasilar atelectasis. PLEURA: Probable small bilateral layering pleural effusions. HEART AND MEDIASTINUM: Stable enlargement. BONES AND SOFT TISSUES: No acute findings. IMPRESSION: Interval placement of Dobbhoff tube, otherwise no significant interval change. Signed by: Dr. Hazel Bose M.D. on 01/26/2017 6:54 AM
[2017-01-26] MEDS ORDERED: SODIUM CHLORIDE 0.9% 250ML 250 ML IV ONE (07:15)
[2017-01-26 07:50] LABS: BAND NEUTROPHILS % (MANUAL) 5 %; EOSINOPHILS % (MANUAL) 4 % (0-7); LYMPHOCYTES % (MANUAL) 20 % (19-48); MONOCYTES % (MANUAL) 5 % (3.4-9.0); MYELOCYTES % (MANUAL) 3 % (0-0); NEUTROPHILS % (MANUAL) 63 % (40-74)
[2017-01-26 07:51] LABS: HYPOCHROMASIA MODERATE; PLATELET ESTIMATE SLIGHTLY DECREASED; RBC MORPHOLOGY COMMENT NORMAL
[2017-01-26 07:52] LABS: PLATELET MORPHOLOGY COMMENT FEW LARGE
[2017-01-26] MEDS: [UNRECOGNIZED DRUG - OTHER] IV SCH (08:05)
[2017-01-26] MEDS: THIAMINE HCL IV SCH (08:05)
[2017-01-26] MEDS: MULTIVITAMINS IV SCH (08:05)
[2017-01-26] MEDS: FOLIC ACID IV SCH (08:05)
[2017-01-26] MEDS: ACETAMINOPHEN 325 MG/10 ML UDC NG PRN ×3 (08:28→12:05)
[2017-01-26] MEDS: ASPIRIN 81 MG ENTERIC COATED PO SCH (09:00)
[2017-01-26] MEDS: DOCUSATE SODIUM 100 MG CAP PO SCH ×2 (09:00→17:00)
[2017-01-26] MEDS: SERTRALINE HCL 50 MG TAB PO SCH (09:00)
[2017-01-26] MEDS: PANTOPRAZOLE 40 MG 10ML VIAL IV SCH (09:00)
[2017-01-26] MEDS: THIAMINE HCL INJ 100 MG/ML 2ML VIAL IV SCH (09:00)
[2017-01-26] MEDS ORDERED: SODIUM CHLORIDE 0.9% 250ML 500 ML ONE (12:47)
[2017-01-26] MEDS ORDERED: PHYTONADIONE 10 MG/ML AMP SQ ONE (13:15)
[2017-01-26] MEDS ORDERED: FUROSEMIDE INJ 10 MG/ML 2 ML VIAL ONE (17:27)
[2017-01-26] MEDS: ENOXAPARIN SOD INJ 40 MG/0.4 ML SYR SC SCH (18:30)
[2017-01-26] MEDS ORDERED: PHYTONADIONE 10MG/ML 1 ML ONE (18:40)
[2017-01-26] MEDS ORDERED: FUROSEMIDE INJ 10 MG/ML 2 ML VIAL IV ONE (18:55)
[2017-01-26] MEDS ORDERED: SODIUM CHLORIDE 0.45% 100 ML 100 ML IV ONE (22:14)
[2017-01-27] VITALS (17 sets, daily range): BP systolic 98–133; BP diastolic 55–76
[2017-01-27] MEDS: FOLIC ACID IV SCH ×3 (00:53→20:44)
[2017-01-27] MEDS: [UNRECOGNIZED DRUG - OTHER] IV SCH ×3 (00:53→20:44)
[2017-01-27] MEDS: THIAMINE HCL IV SCH ×3 (00:53→20:44)
[2017-01-27] MEDS: MULTIVITAMINS IV SCH ×3 (00:53→20:44)
--- NOTE | 2017-01-27 02:29 | Diagnostic Imaging Report ---
EXAMINATION: Head CT without contrast. HISTORY:Altered mental status. COMPARISON:CT brain from 01/03/2017. TECHNIQUE: Multidetector axial images were obtained from the foramen magnum to the vertex without contrast. The images were reconstructed using brain and bone algorithms. Thin section brain images were reformatted into coronal and sagittal planes. Intravenous contrast: None IMAGE QUALITY: Suboptimal evaluation particularly of the skull base and posterior fossa due to motion-related streak artifacts. FINDINGS: Skull/scalp: Unchanged posterior parietal scalp soft tissue thickening at the vertex may represent scar. Parenchyma: Nonspecific few, scattered supratentorial white matter hypodensity are likely related to small vessel ischemic changes. No acute hemorrhage, mass or acute major vascular territorial infarct. Arteries: No density suggestive of thrombosis. Dural sinuses: No abnormal density suggestive of thrombosis. Ventricles: Mild compensated dilatation due to volume loss. No hydrocephalus. Extra-axial spaces: No abnormal density. Brain volume: Generalized cerebral volume loss greater than expected for given age. Craniocervical junction: No mass, Chiari malformation, or basilar invagination. Sella: No mass. Paranasal/mastoid sinuses: Near complete opacification of bilateral ethmoid sinuses. Moderate mucosal thickening in bilateral maxillary, frontal and sphenoid sinuses with air-fluid level. IMPRESSION: No acute intracranial abnormality, particularly no acute hemorrhage, mass or acute major vascular territorial infarct. Moderate to severe mucosal inflammatory changes in the paranasal sinuses as above. Otherwise no change since CT brain from 01/03/2017. Chronic findings: 1. Mild supratentorial white matter microvascular ischemic changes. 2. Moderate to severe generalized cerebral volume loss, advanced for patient's given age. Signed by: Dr. Vidhya Ramon M.D. on 01/27/2017 2:26 AM
[2017-01-27] MEDS: IPRATROPIUM BROMIDE 0.02% 2.5 ML NEB NEB SCH ×4 (02:30→19:10)
[2017-01-27] MEDS ORDERED: INSULIN REGULAR, HUMAN 100 UNIT/1 ML 3ML VIAL ONE (02:56)
[2017-01-27] MEDS: LABETALOL HCL IV 5 MG/ML 20ML MDV IV SCH ×4 (06:00→18:00)
[2017-01-27] MEDS: MEROPENEM 500 MG VIAL IV SCH ×3 (06:07→21:00)
[2017-01-27] MEDS: WATER STERILE 10 ML VIAL IV SCH ×3 (06:07→21:39)
[2017-01-27 06:49] LABS: INR 1.1; PROTHROMBIN TIME 14.8 seconds (11.9-14.5)
[2017-01-27 06:52] LABS: HEMATOCRIT 26.2 % (38.2-49.6); HEMOGLOBIN 8.5 g/dL (14.0-18.0); MEAN CORPUSCULAR HEMOGLOBIN 28.4 pg (28-32); MEAN CORPUSCULAR HGB CONC 32.4 g/dL (31-35); MEAN CORPUSCULAR VOLUME 87.6 fL (81-99); PLATELET COUNT 133 x10e3/uL (140-360); RED BLOOD COUNT 2.99 x10e6/uL (4.3-5.7); RED CELL DISTRIBUTION WIDTH 16.1 % (11.7-14.4)
[2017-01-27 07:04] LABS: ALBUMIN 2.1 g/dL (3.5-5.0); ALBUMIN/GLOBULIN RATIO 0.4 (0.8-2.0); ANION GAP 14.8 mmol/L (8-16); CREATININE, SERUM 2.77 mg/dL (0.72-1.25); MAGNESIUM 1.3 MG/DL (1.3-2.1); POTASSIUM 3.8 mmol/L (3.5-5.1)
[2017-01-27] MEDS ORDERED: FUROSEMIDE INJ 10 MG/ML 2 ML VIAL ONE (07:17)
[2017-01-27] MEDS: LEVALBUTEROL HCL SOLN NEBU 0.63 MG/3 ML NEB INH PRN (08:09)
[2017-01-27] MEDS: DOCUSATE SODIUM 100 MG CAP PO SCH ×2 (09:00→17:00)
[2017-01-27 14:28] LABS: BAND NEUTROPHILS % (MANUAL) 5 %; EOSINOPHILS % (MANUAL) 10 % (0-7); LYMPHOCYTES % (MANUAL) 22 % (19-48); MONOCYTES % (MANUAL) 2 % (3.4-9.0); NEUTROPHILS % (MANUAL) 61 % (40-74)
[2017-01-27 14:29] LABS: ANISOCYTOSIS SLIGHT; HYPOCHROMASIA SLIGHT; PLATELET ESTIMATE SLIGHTLY DECREASED; PLATELET MORPHOLOGY COMMENT FEW LARGE; RBC MORPHOLOGY COMMENT NORMAL
[2017-01-27 17:34] LABS: OSMOLALITY,SERUM OSMOMETER 362 mOsmol/kg (275-295)
--- NOTE | 2017-01-27 19:25 | Consultation ---
DATE OF CONSULTATION: January 27, 2017 REASON FOR CONSULTATION: Sepsis, recommendation for antibiotic. HISTORY OF PRESENT ILLNESS: The patient was seen in the intensive care unit. He was intubated and sedated. His is at the bedside. The patient is a 61-year-old white male who was recently at [facility]. He went to [facility]. Apparently, he was taking Valium p.r.n. agitation. He has been gradually getting worse, not eating or drinking. The saying he became dehydrated. He was transferred back here. He has history of hypertension, diabetes mellitus, obesity and anxiety. Alcoholism before. Hypertension. Dementia. Depression. History of bilateral cataract surgery. History of knee surgery, left upper arm surgery, testicular cancer surgery, bilateral carpal tunnel syndrome. So he was brought here. He is intubated and sedated. He has a rectal tube and a Hammond catheter. Does not provide any meaningful information. PAST MEDICAL HISTORY: As above. PAST SURGICAL HISTORY: As above. ALLERGIES: PENICILLIN, BUT HE DID OKAY WITH PENICILLIN BEFORE. LABORATORY DATA: White count 10. Hemoglobin 8.5, . Sodium 138. Potassium 3.8. Creatinine 2.77. AST 42, ALT 31. His sputum showed Staph aureus. His blood showed E. coli, ESBL. His urine showed ESBL, E. coli. PHYSICAL EXAMINATION: GENERAL: Intubated and sedated. VITALS: Stable. Currently temperature 99.2. T max 102.1. HEENT: Orally intubated. CHEST: Few crackles bilaterally. COR: S1 and S2 and no murmur. ABDOMEN: Soft. Bowel sounds present. EXTREMITIES: Some edema. IMPRESSION: 1. Sepsis secondary to pyelonephritis, secondary to Escherichia coli, extended-spectrum beta lactamase 2. Acute tubular necrosis with chronic kidney disease. 3. History of alcoholism. 4. Respiratory failure. 5. Hypertension. 6. History of testicular cancer. 7. History of dementia and brain injury. 8. Alcoholism. Agree with meropenem. Will adjust to 500 q.12 hours. Recheck CBC. Recheck chem panel. Will plan on 14 days of antibiotics. Continue supportive care. Will follow with you. Job#: [id number]
[2017-01-27] MEDS: CITRIC ACID/SODIUM CITRATE 30 ML UDC PO SCH (20:44)
[2017-01-27] MEDS: PANTOPRAZOLE 40 MG 10ML VIAL IV SCH (21:39)
[2017-01-27] MEDS: INSULIN DETEMIR 100 UNIT/ML PEN SQ SCH ×2 (21:40)
[2017-01-28] VITALS (59 sets, daily range): BP systolic 103–145; BP diastolic 55–74
[2017-01-28] MEDS: IPRATROPIUM BROMIDE 0.02% 2.5 ML NEB NEB SCH ×3 (03:00→19:00)
[2017-01-28] MEDS: THIAMINE HCL IV SCH ×3 (03:46→21:00)
[2017-01-28] MEDS: [UNRECOGNIZED DRUG - OTHER] IV SCH ×3 (03:46→21:00)
[2017-01-28] MEDS: FOLIC ACID IV SCH ×3 (03:46→21:00)
[2017-01-28] MEDS: MULTIVITAMINS IV SCH ×3 (03:46→21:00)
[2017-01-28] MEDS: LABETALOL HCL IV 5 MG/ML 20ML MDV IV SCH ×4 (06:00→18:08)
[2017-01-28 06:10] LABS: BASOPHILS % 0.2 % (0.0-1.0); EOSINOPHILS # (AUTO) 0.3 (0.0-0.4); EOSINOPHILS % 2.8 % (0.0-6.0); HEMATOCRIT 24.5 % (38.2-49.6); HEMOGLOBIN 7.9 g/dL (14.0-18.0); LYMPHOCYTES # (AUTO) 1.6 (1.0-3.2); LYMPHOCYTES % 16.9 % (18.0-39.1); MEAN CORPUSCULAR HEMOGLOBIN 27.9 pg (28-32); MEAN CORPUSCULAR HGB CONC 32.2 g/dL (31-35); MEAN CORPUSCULAR VOLUME 86.6 fL (81-99); MONOCYTES # (AUTO) 0.6 (0.2-0.8); MONOCYTES % 6.8 % (4.4-11.3); NEUTROPHILS # (AUTO) 6.7 (2.1-6.9); NEUTROPHILS % 72.9 % (38.7-80.0); PLATELET COUNT 142 x10e3/uL (140-360); RED BLOOD COUNT 2.83 x10e6/uL (4.3-5.7); RED CELL DISTRIBUTION WIDTH 15.5 % (11.7-14.4)
[2017-01-28 06:28] LABS: ANION GAP 14.6 mmol/L (8-16); CALCIUM 7.9 mg/dL (8.4-10.2); CREATININE, SERUM 2.57 mg/dL (0.72-1.25); MAGNESIUM 1.4 MG/DL (1.3-2.1); POTASSIUM 3.6 mmol/L (3.5-5.1)
[2017-01-28] MEDS ORDERED: ARTIFICIAL TEARS (OPTH) 15 ML BTL OU PRN (06:45)
--- NOTE | 2017-01-28 06:57 | Diagnostic Imaging Report ---
EXAM: CHEST SINGLE (PORTABLE), AP 1 view DATE: 01/28/2017 6:23 AM Time stamp on exam: 0612 hours INDICATION: Intubated COMPARISON: AP view of the chest January 26, 2017 FINDINGS: LINES/TUBES: Stable endotracheal tube. The Dobbhoff tube courses below the diaphragm out of field of view. Stable left approach PICC. LUNGS: Bibasilar atelectasis. PLEURA: Layering bilateral pleural effusions. HEART AND MEDIASTINUM: Stable cardiac enlargement. BONES AND SOFT TISSUES: No acute findings. IMPRESSION: No interval change. Signed by: Dr. Hazel Bose M.D. on 01/28/2017 6:53 AM
[2017-01-28] MEDS ORDERED: SODIUM CHLORIDE 0.9% 250ML 250 ML IV ONE (07:00)
[2017-01-28 08:28] LABS: BAND NEUTROPHILS % (MANUAL) 2 %; EOSINOPHILS % (MANUAL) 2 % (0-7); LYMPHOCYTES % (MANUAL) 21 % (19-48); MONOCYTES % (MANUAL) 9 % (3.4-9.0); NEUTROPHILS % (MANUAL) 66 % (40-74)
[2017-01-28 08:29] LABS: RBC MORPHOLOGY COMMENT NORMAL
[2017-01-28 08:30] LABS: PLATELET ESTIMATE SLIGHTLY DECREASED; PLATELET MORPHOLOGY COMMENT FEW LARGE; POIKILOCYTOSIS SLIGHT
[2017-01-28] MEDS ORDERED: VANCOMYCIN 1GM/NS 250 ML 250 ML IV SCH (08:30)
[2017-01-28 08:31] LABS: HYPOCHROMASIA SLIGHT
[2017-01-28] MEDS: ACETAMINOPHEN 325 MG/10 ML UDC NG PRN (08:35)
[2017-01-28] MEDS: DOCUSATE SODIUM 100 MG CAP PO SCH ×2 (08:35→16:15)
[2017-01-28] MEDS: CITRIC ACID/SODIUM CITRATE 30 ML UDC PO SCH ×4 (08:35→21:22)
[2017-01-28] MEDS: PANTOPRAZOLE 40 MG 10ML VIAL IV SCH ×2 (08:35→21:00)
[2017-01-28] MEDS: WATER STERILE 10 ML VIAL IV SCH ×2 (09:00→22:34)
[2017-01-28 09:59] LABS: ABG HCO3 19 mmol/L (23-28); ABG PCO2 26 mmHg (41-51); ABG PH 7.45 (7.31-7.41); ABG PO2 100 mmHg (80-105)
[2017-01-28] MEDS ORDERED: SODIUM CHLORIDE 0.9% 250ML 250 ML ONE (10:36)
[2017-01-28] MEDS ORDERED: FUROSEMIDE INJ 10 MG/ML 4 ML VIAL IV ONE (12:00)
[2017-01-28] MEDS: INSULIN DETEMIR 100 UNIT/ML PEN SQ SCH (22:00)
[2017-01-28] MEDS: MEROPENEM 500 MG VIAL IV SCH (22:34)
[2017-01-28] MEDS: INSULIN REGULAR, HUMAN 3ML VL 100 UNIT in SODIUM CHLORIDE 0.45% 100 ML 100 ML IV SCH ×2 (22:36)
[2017-01-29] VITALS (68 sets, daily range): BP systolic 105–154; BP diastolic 58–79
[2017-01-29] MEDS: ACETAMINOPHEN 325 MG/10 ML UDC NG PRN (02:26)
[2017-01-29] MEDS: IPRATROPIUM BROMIDE 0.02% 2.5 ML NEB NEB SCH ×4 (02:45→18:45)
[2017-01-29] MEDS: FOLIC ACID IV SCH ×3 (03:45→15:49)
[2017-01-29] MEDS: MULTIVITAMINS IV SCH ×3 (03:45→15:49)
[2017-01-29] MEDS: THIAMINE HCL IV SCH ×3 (03:45→15:49)
[2017-01-29] MEDS: [UNRECOGNIZED DRUG - OTHER] IV SCH ×3 (03:45→15:49)
[2017-01-29] MEDS: LABETALOL HCL IV 5 MG/ML 20ML MDV IV SCH ×5 (06:00→23:44)
--- NOTE | 2017-01-29 06:11 | Diagnostic Imaging Report ---
EXAM: CHEST SINGLE (PORTABLE), AP 1 view DATE: 01/29/2017 7:00 AM Time stamp on exam: 0455 hours INDICATION: Pneumonia COMPARISON: AP view of the chest January 28, 2017 FINDINGS: LINES/TUBES: Endotracheal tube terminates 5 cm above the jose rafael. Tip of Dobbhoff tube in expected location of the body of the stomach. Stable left approach PICC. LUNGS: Bibasilar atelectasis PLEURA: Layering bilateral pleural effusions HEART AND MEDIASTINUM: Stable enlargement of the cardiomediastinal silhouette BONES AND SOFT TISSUES: No acute findings. IMPRESSION: No interval change Signed by: Dr. Hazel Bose M.D. on 01/29/2017 6:08 AM
[2017-01-29 06:38] LABS: ANION GAP 15.5 mmol/L (8-16); CALCIUM 7.5 mg/dL (8.4-10.2); CREATININE, SERUM 2.2 mg/dL (0.72-1.25); MAGNESIUM 1.3 MG/DL (1.3-2.1); PHOSPHORUS 4.3 MG/DL (2.3-4.7); POTASSIUM 3.5 mmol/L (3.5-5.1)
[2017-01-29] MEDS: LEVALBUTEROL HCL SOLN NEBU 0.63 MG/3 ML NEB INH PRN ×2 (07:08→14:10)
[2017-01-29] MEDS: CITRIC ACID/SODIUM CITRATE 30 ML UDC PO SCH ×4 (09:00→20:58)
[2017-01-29] MEDS: DOCUSATE SODIUM 100 MG CAP PO SCH ×2 (09:00→15:49)
[2017-01-29] MEDS: PANTOPRAZOLE 40 MG 10ML VIAL IV SCH ×2 (09:00→20:58)
[2017-01-29] MEDS: MEROPENEM 500 MG VIAL IV SCH ×2 (09:00→20:58)
--- NOTE | 2017-01-29 09:34 | Progress Note ---
DATE: January 29, 2017 TIME: 8:45 a.m. in the intensive care unit. DIAGNOSES 1. Hypoxic encephalopathy. 2. Cardiorespiratory arrest. 3. Sepsis. 4. Hypertension. 5. Acute kidney injury. 6. Alcoholism. The patient continues on the ventilator. No sedation. He is unresponsive to verbal commands and to pain stimulation. He does open his eyes. Not following. Pupils are 3 mm and sluggish. Doll's reflexes down. Corneal reflexes absent. Limbs are flaccid. No response to pain stimulation. Plantar stimulation with no response. Laboratory work has been reviewed. Patient's condition is quite critical. There is no evidence of any cognitive function so far. Job#: [id number] AYDEN
[2017-01-29] MEDS: VANCOMYCIN 1GM/NS 250 ML 250 ML IV SCH ×2 (10:00→20:58)
--- NOTE | 2017-01-29 10:11 | Consultation ---
DATE OF CONSULTATION: January 27, 2017 NEUROLOGICAL CONSULTATION TIME: 3:20 p.m. in the intensive care unit. REASON FOR CONSULTATION: Patient while here in the ICU, the patient apparently suffered a cardiorespiratory arrest and needed CPR. The pulse was back and intubated. Now, the patient has become very restless and unresponsive. There is no sedation. PAST MEDICAL HISTORY: The patient has been in the snf where he was getting some Valium for agitation. Apparently, the patient became less responsive and running temperature. Apparently, had septic shock. Has a history of alcoholism, hypertension, dementia, depression. SURGERIES: History of knee surgery, cataracts. He has a history of testicular cancer years ago and underwent surgery and chemotherapy. The patient also had bilateral carpal tunnel surgery. ALLERGIES: PENICILLIN. REVIEW OF SYSTEMS: Unable to perform because of the mental status. FAMILY HISTORY: Noncontributory. PHYSICAL EXAMINATION GENERAL: During this examination, the patient's is at bedside. The patient has eyes open, but not fixed. Does not follow commands. HEENT: Pupils are 3 mm and both sluggish reaction. Doll's movements are depressed. Corneal present but rather depressed. Limbs flaccid. EXTREMITIES: To pain stimulation, no withdrawal of either the arms or legs. Plantar stimulation does not respond. LABORATORY WORKUP: Sodium 138, potassium 3.8, BUN 14.8, creatinine 3.8, estimated GFR 24, which is low. Glucose 169. Liver enzymes: AST is 42, ALT 31, alkaline phosphatase 22. Urinalysis has been reviewed, and has a moderate amount of bacteria, wbcs 6-10, protein is elevated, urine blood 3+. IMAGING: CT scan of the brain without contrast shows no acute intracranial abnormality. No hemorrhage. No acute infarction. Moderate to severe mucosal inflammatory changes in the paranasal sinuses. There is chronic small vessel disease seen bilaterally. Has moderate to severe generalized volume loss, which is advanced for the patient's age. This is probably alcohol encephalopathy. IMPRESSION 1. Hypoxic encephalopathy. 2. Cardiorespiratory arrest. 3. Hypertension. 4. Alcohol encephalopathy. 5. Renal insufficiency. RECOMMENDATIONS: EEG. Will monitor closely. Job#: [id number] IN
[2017-01-29] MEDS: WATER STERILE 10 ML VIAL IV SCH ×2 (10:24→20:58)
--- NOTE | 2017-01-29 12:44 | Progress Note ---
DATE: January 29, 2017 NEPHROLOGY PROGRESS NOTE SUBJECTIVE: I's and O's are evenly matched, but he remains on the ventilator, off sedation, not really responding as in having eyes open. OBJECTIVE VITAL SIGNS: Temperature 99, pulse 79, blood pressure 107/60. CHEST: Diminished breath sounds at the bases. EXTREMITIES: Trace axillary edema. ABDOMEN: Question minimal distention. NEURO: Not responding. Sodium 134, potassium 3.5, chloride 102, bicarb 20, creatinine 2.2, BUN 70. Hemoglobin 7.9. ASSESSMENT 1. Acute tubular necrosis. 2. Mild fluid overload. 3. Minimal hypokalemia. 4. Metabolic acidosis. PLAN: Continue Bicitra. Cut down the IV fluids. One dose of Lasix. AM chemistries. Will follow along. Sincerely, Job#: [id number] EV
[2017-01-29] MEDS ORDERED: FUROSEMIDE INJ 10 MG/ML 4 ML VIAL IV ONE ×2 (13:00)
[2017-01-29] MEDS ORDERED: POTASSIUM CHLORIDE 20MEQ/100ML 100 ML IV ONE (13:00)
[2017-01-29] MEDS: INSULIN REGULAR, HUMAN 3ML VL 100 UNIT in SODIUM CHLORIDE 0.45% 100 ML 100 ML IV SCH ×2 (17:34)
[2017-01-29] MEDS: INSULIN DETEMIR 100 UNIT/ML PEN SQ SCH (21:11)
[2017-01-30] VITALS (96 sets, daily range): BP systolic 114–155; BP diastolic 58–81
[2017-01-30] MEDS: IPRATROPIUM BROMIDE 0.02% 2.5 ML NEB NEB SCH ×4 (02:34→18:45)
[2017-01-30] MEDS: LABETALOL HCL IV 5 MG/ML 20ML MDV IV SCH ×3 (05:44→18:01)
[2017-01-30 06:24] LABS: ANION GAP 14.8 mmol/L (8-16); CALCIUM 7.9 mg/dL (8.4-10.2); CREATININE, SERUM 1.81 mg/dL (0.72-1.25); MAGNESIUM 1.2 MG/DL (1.3-2.1); PHOSPHORUS 4.1 MG/DL (2.3-4.7); POTASSIUM 3.8 mmol/L (3.5-5.1)
[2017-01-30] MEDS: LEVALBUTEROL HCL SOLN NEBU 0.63 MG/3 ML NEB INH PRN ×2 (07:49→12:58)
[2017-01-30] MEDS: PANTOPRAZOLE 40 MG 10ML VIAL IV SCH ×2 (08:46→20:58)
[2017-01-30] MEDS: DOCUSATE SODIUM 100 MG CAP PO SCH ×2 (08:46→18:00)
[2017-01-30] MEDS: WATER STERILE 10 ML VIAL IV SCH ×2 (08:46→20:58)
[2017-01-30] MEDS: MEROPENEM 500 MG VIAL IV SCH ×2 (08:46→20:58)
[2017-01-30] MEDS: CITRIC ACID/SODIUM CITRATE 30 ML UDC PO SCH ×4 (08:46→20:58)
[2017-01-30] MEDS: FOLIC ACID IV SCH ×2 (10:42→20:00)
[2017-01-30] MEDS: THIAMINE HCL IV SCH ×2 (10:42→20:00)
[2017-01-30] MEDS: [UNRECOGNIZED DRUG - OTHER] IV SCH ×2 (10:42→20:00)
[2017-01-30] MEDS: MULTIVITAMINS IV SCH ×2 (10:42→20:00)
[2017-01-30] MEDS: VANCOMYCIN 1GM/NS 250 ML 250 ML IV SCH ×2 (10:57→22:00)
--- NOTE | 2017-01-30 11:17 | Electroencephalogram ---
DATE OF STUDY: Age 61. Patient, multiple organ failure, is unresponsive. No sedation. The background activity is characterized by rather depressed 3 to 4 cycles per second activity seen diffusely throughout the entire recording. Record shows no evidence of seizure activity. IMPRESSION: Grossly normal EEG in the presence of rather depressed brain activity seen throughout the recording, indicative of diffuse cerebral dysfunction. Job#: [id number] EV
[2017-01-30] MEDS: INSULIN DETEMIR 100 UNIT/ML PEN SQ SCH (20:59)
[2017-01-31] VITALS (82 sets, daily range): BP systolic 84–142; BP diastolic 49–73
[2017-01-31] MEDS: LABETALOL HCL IV 5 MG/ML 20ML MDV IV SCH ×4 (00:18→16:23)
[2017-01-31] MEDS: IPRATROPIUM BROMIDE 0.02% 2.5 ML NEB NEB SCH ×3 (02:10→19:23)
[2017-01-31] MEDS: [UNRECOGNIZED DRUG - OTHER] IV SCH ×2 (04:44→06:36)
[2017-01-31] MEDS: THIAMINE HCL IV SCH ×2 (04:44→06:36)
[2017-01-31] MEDS: FOLIC ACID IV SCH ×2 (04:44→06:36)
[2017-01-31] MEDS: MULTIVITAMINS IV SCH ×2 (04:44→06:36)
[2017-01-31] MEDS: LEVALBUTEROL HCL SOLN NEBU 0.63 MG/3 ML NEB INH PRN (07:15)
[2017-01-31] MEDS: MEROPENEM 500 MG VIAL IV SCH ×2 (09:00→21:00)
[2017-01-31] MEDS: PANTOPRAZOLE 40 MG 10ML VIAL IV SCH ×2 (09:00→21:00)
[2017-01-31] MEDS: DOCUSATE SODIUM 100 MG CAP PO SCH ×2 (09:00→16:23)
[2017-01-31] MEDS: CITRIC ACID/SODIUM CITRATE 30 ML UDC PO SCH ×4 (09:00→21:00)
[2017-01-31] MEDS: WATER STERILE 10 ML VIAL IV SCH ×2 (09:00→21:00)
[2017-01-31] MEDS: LORAZEPAM INJ 2 MG/ML VIAL IV PRN ×4 (09:50→13:13)
[2017-01-31] MEDS: MORPHINE SULFATE 2 MG/ML SYR IV PRN ×6 (09:50→15:30)
[2017-01-31] MEDS ORDERED: LORAZEPAM INJ 2 MG/ML VIAL ONE (09:51)
[2017-01-31] MEDS ORDERED: MORPHINE SULFATE 2 MG/ML SYR ONE (09:51)
[2017-01-31] MEDS: VANCOMYCIN 1GM/NS 250 ML 250 ML IV SCH ×2 (10:00→22:00)
[2017-01-31] MEDS: INSULIN DETEMIR 100 UNIT/ML PEN SQ SCH (21:00)
[2017-02-01] VITALS (77 sets, daily range): BP systolic 65–134; BP diastolic 37–69
[2017-02-01] MEDS: IPRATROPIUM BROMIDE 0.02% 2.5 ML NEB NEB SCH ×3 (00:02→19:10)
[2017-02-01] MEDS: MORPHINE SULFATE 2 MG/ML SYR IV PRN ×15 (01:55→22:15)
[2017-02-01] MEDS: THIAMINE HCL IV SCH (02:50)
[2017-02-01] MEDS: [UNRECOGNIZED DRUG - OTHER] IV SCH (02:50)
[2017-02-01] MEDS: FOLIC ACID IV SCH (02:50)
[2017-02-01] MEDS: MULTIVITAMINS IV SCH (02:50)
[2017-02-01] MEDS ORDERED: ATROPINE SULFATE 1% OPTH SOLN 5 ML SL PRN ×2 (05:15→05:30)
[2017-02-01] MEDS: LABETALOL HCL IV 5 MG/ML 20ML MDV IV SCH ×4 (05:58→17:10)
[2017-02-01] MEDS: WATER STERILE 10 ML VIAL IV SCH (09:00)
[2017-02-01] MEDS: MEROPENEM 500 MG VIAL IV SCH (09:00)
[2017-02-01] MEDS: CITRIC ACID/SODIUM CITRATE 30 ML UDC PO SCH ×3 (09:00→17:11)
[2017-02-01] MEDS: DOCUSATE SODIUM 100 MG CAP PO SCH ×2 (09:00→17:00)
[2017-02-01] MEDS: PANTOPRAZOLE 40 MG 10ML VIAL IV SCH (09:00)
[2017-02-01] MEDS: VANCOMYCIN 1GM/NS 250 ML 250 ML IV SCH (10:00)
[2017-02-01] MEDS: LORAZEPAM INJ 2 MG/ML VIAL IV PRN ×2 (15:26→22:00)
== END 2017-02-01 23:35 | disposition expired | DRG 870 ==
LOC: ER 16:09 → ERHOLD 17:58 → IMCU 18:42 → OBSVTOIN 01-24 06:50 → ICU 01-24 08:13
PROVIDERS: ADMIT Internal Medicine; ATTEND Internal Medicine
PROC: 02H633Z Insertion of Infusion Device into Right Atrium, Percutaneous Approach (ICD-10-PCS; 2017-01-24)
PROC: 5A09357 Assistance with Respiratory Ventilation, Less than 24 Consecutive Hours, Continuous Positive Airway Pressure (ICD-10-PCS; 2017-01-24)
PROC: 0BH17EZ Insertion of Endotracheal Airway into Trachea, Via Natural or Artificial Opening (ICD-10-PCS; principal; 2017-01-25)
PROC: 5A1955Z Respiratory Ventilation, Greater than 96 Consecutive Hours (ICD-10-PCS; 2017-01-25)
PROC: 5A12012 Performance of Cardiac Output, Single, Manual (ICD-10-PCS; 2017-01-25)
PROC: 3E043XZ Introduction of Vasopressor into Central Vein, Percutaneous Approach (ICD-10-PCS; 2017-01-25)
PROC: 30233N1 Transfusion of Nonautologous Red Blood Cells into Peripheral Vein, Percutaneous Approach (ICD-10-PCS; 2017-01-26)
DX: A41.51 Sepsis due to Escherichia coli [E. coli] (principal); I46.9 Cardiac arrest, cause unspecified; N17.0 Acute kidney failure with tubular necrosis; J69.0 Pneumonitis due to inhalation of food and vomit; J96.01 Acute respiratory failure with hypoxia; G93.1 Anoxic brain damage, not elsewhere classified; E87.2 Acidosis; J15.212 Pneumonia due to Methicillin resistant Staphylococcus aureus; N39.0 Urinary tract infection, site not specified; E87.0 Hyperosmolality and hypernatremia; N18.3 Chronic kidney disease, stage 3 (moderate); E86.0 Dehydration; I48.91 Unspecified atrial fibrillation; B96.20 Unspecified Escherichia coli [E. coli] as the cause of diseases classified elsewhere; Z16.12 Extended spectrum beta lactamase (ESBL) resistance; G31.2 Degeneration of nervous system due to alcohol; F02.80 Dementia in other diseases classified elsewhere, unspecified severity, without behavioral disturbance, psychotic disturbance, mood disturbance, and anxiety; E11.22 Type 2 diabetes mellitus with diabetic chronic kidney disease; I13.10 Hypertensive heart and chronic kidney disease without heart failure, with stage 1 through stage 4 chronic kidney disease, or unspecified chronic kidney disease; Z79.4 Long term (current) use of insulin; D64.9 Anemia, unspecified; E66.9 Obesity, unspecified; Z68.36 Body mass index [BMI] 36.0-36.9, adult; E87.6 Hypokalemia; R41.0 Disorientation, unspecified; Z79.82 Long term (current) use of aspirin; Z88.0 Allergy status to penicillin; F10.21 Alcohol dependence, in remission; Z85.47 Personal history of malignant neoplasm of testis; Z92.21 Personal history of antineoplastic chemotherapy; Z92.3 Personal history of irradiation
CPT/HCPCS: 36415; 36430; 36569; 36600; 70450; 71010; 74000; 76700; 80048; 80053; 80202; 81001; 82270; 82550; 82553; 82805; 82947; 82948; 83735; 83880; 83930; 83935; 84100; 84295; 84300; 84436; 84443; 84479; 84484; 84520; 85007; 85025; 85027; 85610; 85730; 86021; 86850; 86900; 86920; 87040; 87070; 87071; 87086; 87186; 87205; 87493; 93005; 93306; 93970; 94002; 94003; 94640; 94660; 95812; 96361; 96365; 96366; 96372; 99285; G0378; J0171; J1160; J1650; J1940; J1956; J2060; J2185; J2250; J2270; J3370; J3411; J3430; J3480; J7030; J7050; J7070; P9016